=== PATIENT | female | born 1980 | race Caucasian/White ===

== ENCOUNTER 2018-05-04 22:26 | Emergency (ER) | payer OTHER ==
[~2018-05-04] VITALS: Ht 167.6 cm; Wt 106.6 kg
[2018-05-04] MEDS ORDERED: IBUPROFEN 600 MG TABLET. PO ONE (23:30)
[2018-05-04] MEDS ORDERED: diazePAM 5 MG TABLET PO ONE (23:30)
[2018-05-04 23:43] VITALS: BP 107/55
--- NOTE | 2018-05-05 00:07 | RAD ---
Three-view cervical spine radiographs 05/04/2018 CLINICAL HISTORY: Neck pain post fall from stairs. AP, lateral and swimmer's lateral digital radiographs of the cervical spine were obtained. Minimal lateral curvature of the cervical spine is seen convex to the right. There is straightening of the normal cervical lordosis. No fracture or subluxation of the cervical vertebrae is seen. No prevertebral soft tissue swelling is noted. IMPRESSION: No fracture or subluxation of the cervical vertebrae is seen. Electronically signed by: Paulino Morgan MD (05/05/2018 12:04 AM) [facility]
--- NOTE | 2018-05-05 00:19 | PHYS DOC ---
Past Medical History Past Medical History: Arthritis, Depression, Fibromyalgia, Kidney Stone, Other Additional Past Medical Histor: General social anxiety, scoliosis (sway back), degen disc, l ear deaf. Past Surgical History: Tubal ligation, Other Additional Past Surgical Histo: wisdom teeth, left wrist cyst removal x2, kidney stone Alcohol Use: Occasionally Drug Use: None Adult General Chief Complaint Chief Complaint: MECHANICAL FALL HPI HPI Patient is a 37 year old female presented with a mechanical fall. She has a history of fibromyalgia. She was walking down the steps she slipped and fallen down about 3 steps injuring her right upper back and right neck area she has shooting pain from her right trapezius down to her scapula and up to her neck and head. No loss of consciousness she does not think she hit her head. She does not complain of any domestic violence. Review of Systems Review of Systems Constitutional: Denies fever or chills [] Negative for other trauma. : Denies dysuria or hematuria [] Musculoskeletal:CHRONIC PAIN] Neurologic: Denies headache, focal weakness or sensory changes [] Endocrine: Denies polyuria or polydipsia [] All other systems were reviewed and found to be within normal limits, except as documented in this note. Current Medications Current Medications Current Medications Medications (Trade) Dose Ordered Sig/Jacob Start Time Stop Time Status Last Admin Dose Admin Diazepam (Valium) 5 mg 1X ONCE 05/04/18 23:30 05/04/18 23:31 DC 05/04/18 23:44 5 MG Ibuprofen (Motrin) 600 mg 1X ONCE 05/04/18 23:30 05/04/18 23:31 DC 05/04/18 23:43 600 MG Allergies Allergies Allergies Coded Allergies Type Severity Reaction Last Updated Verified fluoxetine Allergy Unknown rash 05/04/18 Yes Physical Exam Physical Exam Constitutional: Well developed, well nourished, no acute distress, non-toxic appearance. [] HENT: Normocephalic, atraumatic, bilateral external ears normal, oropharynx moist, no oral exudates, nose normal. [] Eyes: PERRLA, EOMI, conjunctiva normal, no discharge. [] Neck: No focal midline tenderness there is right paraspinous tenderness and also right tenderness just medial to the scapular angle. No chest wall tenderness noted Abdomen: Bowel sounds normal, soft, no tenderness, no masses, no pulsatile masses. [] Skin: Warm, dry, no erythema, no rash. [] Back: SEE ABOVE Extremities: No tenderness, no cyanosis, no clubbing, ROM intact, no edema. [] Neurologic: Alert and oriented X 3, normal motor function, normal sensory function, no focal deficits noted. [] Psychologic:ANXIETY NOTED[] Current Patient Data Vital Signs Vital Signs Date Time Temp Pulse Resp B/P (MAP) Pulse Ox O2 Delivery O2 Flow Rate FiO2 05/04/18 23:43 64 99 05/04/18 22:31 98.5 18 139/75 (96) Room Air 98.5 Lab Values Laboratory Tests Test 05/04/18 22:55 POC Urine HCG, Qualitative Hcg negative (Negative) EKG EKG [] Radiology/Procedures Radiology/Procedures [] Impressions: CSPINE XRAY ENG Course & Med Decision Making Course & Med Decision Making Pertinent Labs and Imaging studies reviewed. (See chart for details) []2-year-old female history of fibromyalgia presenting with right lateral neck pain following a slip and fall down 3 stairs. No bony trauma was identified on x -ray patient is neurologically intact she did request narcotics I did tell her that I thought muscle relaxants and Motrin with ice and he would be better. Reassurance was provided Dragon Disclaimer Dragon Disclaimer This electronic medical record was generated, in whole or in part, using a voice recognition dictation system. Departure Departure Impression: Primary Impression: Neck sprain Disposition: 01 HOME, SELF-CARE Condition: STABLE Patient Instructions: Myranda, [id number] TAWANA BAER MD May 05, 2018 00:19
== END 2018-05-04 23:50 | disposition home or self-care (01) ==
LOC: ER 22:26
DX: S13.9XXA Sprain of joints and ligaments of unspecified parts of neck, initial encounter (principal); Z88.8 Allergy status to other drugs, medicaments and biological substances; W10.8XXA Fall (on) (from) other stairs and steps, initial encounter; Y93.89 Activity, other specified; Y99.8 Other external cause status; Y92.89 Other specified places as the place of occurrence of the external cause
CPT/HCPCS: 72040; 81025; 99284